=== PATIENT | male | born 1960 | race Asian ===

== ENCOUNTER 2017-08-13 08:53 | Outpatient (CLI) | payer BC ==
[2017-08-13] MEDS ORDERED: Gadobenate Dimeglumine 529 MG/1 ML (20ML VIAL) ONE (09:00)
--- NOTE | 2017-08-13 12:53 | MRI ---
MRI ABDOMEN WITH AND WITHOUT CONTRAST: INDICATIONS: History of hepatitis B with elevated AFP. COMPARISON: None. TECHNIQUE: Multiplanar, multisequence MR images were obtained of the abdomen utilizing a liver mass protocol and 14 mL of MultiHance. FINDINGS: There is a cirrhotic morphology of the liver. There is mild gallbladder wall thickening, which may b e related to gallbladder wall edema from the patient's cirrhosis. A small gallstone is seen within t he gallbladder. The common bile duct is normal appearing. The spleen is enlarged, measuring 13.4 cm . The kidneys and adrenal glands are normal appearing. No definite pathologically enlarged lymph no jessica are grossly evident. On the dynamic post contrast phase images, there is a small, 9.5 mm hyperenhancing lesion within segm ent 6 of the right hepatic lobe, on image 53 of series 13, that does demonstrate some pre-contrast T1 hyperintensity but with arterial phase enhancement and wash-out. Similar appearing lesions are seen within the medial and lateral left hepatic lobe on image 42 of series 3. There is a smaller, 7 mm l esion seen within the caudate lobe, on image 57 of series 3, that demonstrates some central hyperenha ncement with wash-out. There is a peripheral rim-enhancing lesion within segment 7 of the right hepa tic lobe, on image 37 of series 3. The delayed phase images are limited due to respiratory motion ar tifact. IMPRESSION: Multifocal areas of tiny nodular hyperenhancement with washout, seen within both the right and left h epatic lobes. The most suspicious lesions are seen within segment 6 of the right hepatic lobe, as we ll as within the medial and lateral left hepatic lobe, as detailed above. These lesions do demonstra te hyperenhancement with wash-out and are consistent with small LI-RADS 4 lesions. Findings would be suspicious for multifocal hepatocellular carcinoma. The lesion within the caudate lobe may reflect a dysplastic nodule, as it does retain some of the contrast on the early delayed phase images. The l esion within segment 7 of the right hepatic lobe is a suspected small regenerative nodule. Close MR followup is recommended in six weeks. CODE T POS: BERNARDO
== END 2017-08-13 08:54 | disposition home or self-care (01) ==
LOC: SCSMRI 08:53
PROVIDERS: ATTEND Internal Medicine Gastroenterology
DX: B18.1 Chronic viral hepatitis B without delta-agent (principal); R93.5 Abnormal findings on diagnostic imaging of other abdominal regions, including retroperitoneum
CPT/HCPCS: 74183; A9579